=== PATIENT | male | born 1955 | race Caucasian/White ===

== ENCOUNTER 2017-11-26 05:54 | Day surgery (SDC) | payer BC ==
[~2017-11-26 05:54] MED LIST: Dextrose 5%-0.45% NaCl 1,000 ML IV SCH; Sodium Chloride 0.9% 10 ML Syringe FLUSH PRN
[2017-11-26] MEDS ORDERED: Midazolam 1 MG/ML 2 ML SDV IV ONE ×4 (05:55→06:56)
[2017-11-26] MEDS ORDERED: fentaNYL 100 MCG/2 ML SDV IV ONE ×3 (05:55→06:54)
[2017-11-26] MEDS ORDERED: Dextrose 5%-0.45% NaCl 1,000 ML IV SCH (06:00)
[2017-11-26] MEDS ORDERED: Midazolam 1 MG/ML 2 ML SDV ONE (06:12)
[2017-11-26] MEDS ORDERED: fentaNYL 100 MCG/2 ML SDV ONE (06:12)
--- NOTE | 2017-11-26 10:19 | OR ---
DATE: 11/26/2017 PROCEDURE: Total colonoscopy. INSTRUMENT USED: CF-H180 AL Olympus video colonoscope. PREMEDICATIONS: Fentanyl 100 mcg intravenous, Versed 2.5 mg intravenous. Nasal O2 cannula. The procedure was done under pulse oximetry, BP recording, and director of cardiac cath lab. INDICATION: Screening colonoscopic examination is done for detection of any polypoid lesions and removal, endoscopic hemostasis therapy if needed. DESCRIPTION OF PROCEDURE: Initial rectal exam was unremarkable. Rigid anoscopy was normal. The colonoscope was passed with ease up to the ileocecal area, photographs were taken of the normal-appearing cecum, identified by landmarks of appendiceal orifice and double-bulged ileocecal folds. No bleeding was noted from any of the visualized areas at the commencement of the examination. No stricture. No vascular ectasia. No large isolated ulcerations seen. No evidence of diffuse inflammatory bowel disease in the form of friability, contact bleeding, or ulcerations. No polyp or tumor mass identified. Probing the proximal sides of folds and flexures, using adequate distention and clearing up the stool material, withdrawal of the scope was made. Cecum to rectum time over 6 minutes. No bleeding was noted from any of the visualized areas at the completion of examination. IMPRESSION: Normal study. The patient tolerated the procedure well. [facility] /[id number]
[2017-11-26] MEDS ORDERED: Sodium Chloride 0.9% 10 ML Syringe FLUSH PRN (17:42)
== END 2017-11-26 09:14 | disposition home or self-care (01) ==
LOC: DL.ENDO 05:54
PROVIDERS: ATTEND Internal Medicine Gastroenterology
DX: Z12.11 Encounter for screening for malignant neoplasm of colon (principal); F17.210 Nicotine dependence, cigarettes, uncomplicated
CPT/HCPCS: 45378; J2250; J3010; J7042

== ENCOUNTER 2017-12-23 15:27 | Emergency (ER) | payer OTHER, BC ==
[2017-12-23] MEDS ORDERED: Diphtheria,Pertussis(Acell),Tetanus Vaccine 0.5 ML SDV IM ONE (15:53)
--- NOTE | 2017-12-23 15:58 | EDM.PDOC ---
ED HPI GENERAL MEDICAL PROBLEM - General Stated Complaint: CUT FINGER AT WORK [id number] Time Seen by Provider: 12/23/17 15:50 Source of Information: Reports: Patient History Limitations: Reports: No Limitations - History of Present Illness INITIAL COMMENTS - FREE TEXT/NARRATIVE: This 62 yo male patient reports to the ED with a laceration to his distal 2nd finger. The patient reports he was working when a piece of metal caught his finger and ripped into the side of his finger and fingernail. The patient reports that is has been a "while" since his last tetanus shot. Onset: Today Duration: Minutes:, Constant Location: Reports: Upper Extremity, Left Quality: Reports: Dull, Throbbing Severity: Moderate Improves with: Reports: None Worsens with: Reports: None Context: Reports: Trauma Associated Symptoms: Reports: No Other Symptoms Treatments ROTARY DRIER: Reports: Dressing(s) - Related Data Allergies Allergy/AdvReac Type Severity Reaction Status Date / Time No Known Allergies Allergy Verified 12/23/17 15:56 Home Meds: Home Meds Aspirin 1 tab PO DAILY 11/25/17 [History] Acetaminophen [Tylenol] 650 mg PO DAILY 12/23/17 [History] Past Medical History HEENT History: Reports: Impaired Vision, Other (See Below) Other HEENT History: UPPER AND LOWER DENTURE PLATES. CORRECTIVE LENS Cardiovascular History: Reports: Other (See Below) Other Cardiovascular History: S/P CVA Respiratory History: Reports: None Gastrointestinal History: Reports: None Genitourinary History: Reports: Other (See Below) Other Genitourinary History: GYNECOMASTIA Musculoskeletal History: Reports: Arthritis, Back Pain, Chronic Neurological History: Reports: CVA, Other (See Below) Other Neuro History: LEFT HEMIPARESIS Psychiatric History: Reports: None Endocrine/Metabolic History: Reports: None Hematologic History: Reports: None Immunologic History: Reports: None Oncologic (Cancer) History: Reports: None Dermatologic History: Reports: None - Infectious Disease History Other Infectious Disease History: PATIENT DOES NOT RECALL SPECIFIC HX - Past Surgical History Head Surgeries/Procedures: Reports: None HEENT Surgical History: Reports: Oral Surgery Cardiovascular Surgical History: Reports: None Respiratory Surgical History: Reports: None GI Surgical History: Reports: None Male Surgical History: Reports: None Endocrine Surgical History: Reports: None Neurological Surgical History: Reports: None Oncologic Surgical History: Reports: None Dermatological Surgical History: Reports: None Social & Family History - Tobacco Use Smoking Status *Q: Current Every Day Smoker Years of Tobacco use: 40 Packs/Tins Daily: 2 Second Hand Smoke Exposure: Yes - Caffeine Use Caffeine Use: Reports: Coffee Caffeine Use Comment: 24oz - Recreational Drug Use Recreational Drug Use: No Review of Systems - Review of Systems Review Of Systems: ROS reveals no pertinent complaints other than HPI. ED EXAM, GENERAL - Physical Exam Exam: See Below Exam Limited By: No Limitations General Appearance: Alert, WD/WN, Mild Distress, Thin Eye Exam: Bilateral Eye: EOMI, Normal Inspection, PERRL Ears: Normal External Exam, Normal Canal, Hearing Grossly Normal, Normal TMs Nose: Normal Inspection, Normal Mucosa, No Blood Throat/Mouth: Normal Inspection, Normal Lips, Normal Teeth, Normal Gums, Normal Oropharynx, Normal Voice, No Airway Compromise Head: Atraumatic, Normocephalic Neck: Normal Inspection, Supple, Non-Tender, Full Range of Motion Respiratory/Chest: No Respiratory Distress, Lungs Clear, Normal Breath Sounds Cardiovascular: Normal Peripheral Pulses, Regular Rate, Rhythm (Male) Exam: Deferred Rectal (Males) Exam: Deferred Extremities: Other (laceration to the left distal finger with fingernail involvement) Neurological: Alert, Oriented, CN II-XII Intact, Normal Cognition, Normal Gait Psychiatric: Normal Affect, Normal Mood Skin Exam: Wound/Incision (to the left distal 2nd finger) Lymphatic: No Adenopathy ED TRAUMA EXTREMITY PROCEDURES - Laceration/Wound Repair Left Distal Finger Lac/Wound Length In cm: 2.0 Appearance: Subcutaneous Anesthetic Type: Digital Local Anesthesia - Lidocaine (Xylocaine): 1% Plain Local Anesthetic Volume: 4cc Skin Prep: Chlorhexidine (Hibiciens), Saline Exploration/Debridement/Repair: Wound Explored, In a Bloodless Field, Explored to Base, Multiple Flaps Aligned Closed With: Sutures Suture Size: 4-0 # of Sutures: 3 Sterile Dressing Applied: Provider Tetanus Status Addressed: Yes Complications: No Course - Vital Signs Last Recorded V/S: Last Vital Signs Temp 36.4 C 12/23/17 15:59 Pulse 60 12/23/17 15:59 Resp 16 12/23/17 15:59 BP 140/95 H 12/23/17 15:59 Pulse Ox 100 12/23/17 15:59 - Orders/Labs/Meds Orders: Active Orders 24 hr Category Date Time Status Vaccines to be Administered [RC] PER UNIT ROUTINE Care 12/23/17 15:54 Active Meds: Medications Discontinued Medications Generic Name Dose Route Start Last Admin Trade Name Sal PRN Reason Stop Dose Admin Bacitracin 1 dose 12/23/17 16:37 12/23/17 16:44 Bacitracin Oint 1 Gm TOP 12/23/17 16:38 1 dose ONETIME ONE Administration Diphtheria/Tetanus/Acell Pertussis 0.5 ml 12/23/17 15:53 12/23/17 16:43 Adacel IM 12/23/17 15:54 0.5 ml .ONCE ONE Administration Lidocaine HCl 30 ml 12/23/17 16:37 12/23/17 16:44 Xylocaine-Mpf 1% INJECT 12/23/17 16:38 30 ml ONETIME ONE Administration Departure - Departure Time of Disposition: 17:11 Disposition: Home, Self-Care 01 Condition: Fair Clinical Impression: Open fracture of tuft of distal phalanx of finger Laceration of left index finger with damage to nail Qualifiers: Encounter type: initial encounter Foreign body presence: without foreign body Qualified Code(s): S61.311A - Laceration without foreign body of left index finger with damage to nail, initial encounter - Discharge Information Instructions: Laceration Care, Adult, [id number] Forms: ED Department Discharge Care Plan Goals: The patient was advised of the examination and x-ray results during the visit. The skin margins were well approximated (as possible) during the visit. The patient was encouraged to keep the area clean and dry over the next 48 hours. The patient should change the dressing after 48 hours. The patient was given a script for keflex (500 mg) to take 1 by mouth 2 times per day for 10 days. The sutures should be removed in 14 days. If the patient has any additional symptoms or further concerns, the patient should follow-up with his primary care facility or return to the ED. - My Orders Last 24 Hours: My Active Orders 12/23/17 15:54 Vaccines to be Administered [RC] PER UNIT ROUTINE - Assessment/Plan Last 24 Hours: My Active Orders 12/23/17 15:54 Vaccines to be Administered [RC] PER UNIT ROUTINE
--- NOTE | 2017-12-23 16:35 | CR ---
Clinical history: 62-year-old male injured distal end of index finger (laceration with metal). Interpretation: Avulsion volar pad distally with underlying nondisplaced terminal tuft fracture dista l phalanx of the left index finger. No foreign body or proximal fracture/dislocation left index finger. Soft tissue swelling. No subcutaneous air or inflammatory periostitis.
[2017-12-23] MEDS ORDERED: Lidocaine 1% 30 ML SDV INJECT ONE (16:37)
[2017-12-23] MEDS ORDERED: Bacitracin Oint 1 GM U/D Packet TOP ONE (16:37)
== END 2017-12-23 17:22 | disposition home or self-care (01) ==
LOC: DL.ED 15:27
DX: S62.661A Nondisplaced fracture of distal phalanx of left index finger, initial encounter for closed fracture (principal); S61.311A Laceration without foreign body of left index finger with damage to nail, initial encounter; F17.210 Nicotine dependence, cigarettes, uncomplicated; Z79.82 Long term (current) use of aspirin; Z23 Encounter for immunization; W45.8XXA Other foreign body or object entering through skin, initial encounter; Y99.0 Civilian activity done for income or pay
CPT/HCPCS: 12001; 73140-F1; 90471; 90715; 99283